=== PATIENT | male | born 1985 | race Caucasian/White ===

== ENCOUNTER 2020-12-30 19:43 | Emergency (ER) | payer OTHER, BC ==
[~2020-12-30 19:43] MED LIST: Iopamidol-370 76% 500 ML 1 ML ONE
[2020-12-30] MEDS ORDERED: Lidocaine 1% w/Epinephrine 1:100K 20 ML VIAL ONE (21:38)
[2020-12-30] MEDS ORDERED: Acetaminophen 500 MG TAB ONE (21:38)
== END 2020-12-30 22:20 | disposition home or self-care (01) ==
LOC: ERS 19:43
DX: S16.1XXA Strain of muscle, fascia and tendon at neck level, initial encounter (principal); S33.5XXA Sprain of ligaments of lumbar spine, initial encounter; S01.81XA Laceration without foreign body of other part of head, initial encounter; F17.210 Nicotine dependence, cigarettes, uncomplicated; V43.53XA Car driver injured in collision with pick-up truck in traffic accident, initial encounter
CPT/HCPCS: 12011; 70450; 71260; 72125; 74177; G0390